=== PATIENT | male | born 1980 | race Two or more races ===

== ENCOUNTER 2016-09-06 16:54 | Emergency (ER) | payer OTHER ==
[~2016-09-06] VITALS: Ht 175.3 cm; Wt 90.8 kg
[~2016-09-06 16:54] MED LIST: KEFLEX500 MG PO; PERCOCET 5/31 TABLET PO
[2016-09-06 16:57] VITALS: BP 155/92
[2016-09-06] MEDS ORDERED: SKELAXIN800 MG PO (18:28)
== END 2016-09-06 19:31 | disposition home or self-care (01) ==
LOC: EME 16:54
DX: S29.012A Strain of muscle and tendon of back wall of thorax, initial encounter (principal); V49.40XA Driver injured in collision with unspecified motor vehicles in traffic accident, initial encounter
CPT/HCPCS: 99281; 99283